=== PATIENT | female | born 1940 | race Two or more races ===

== ENCOUNTER 2021-05-01 18:09 | Inpatient (IN) | payer OTHER ==
[~2021-05-01] VITALS: Ht 152.4 cm; Wt 63.5 kg
== END 2021-05-10 15:16 | disposition home or self-care (01) | DRG 392 ==
LOC: ER 18:09 → MEDI 05-02 14:55
PROVIDERS: ADMIT Internal Medicine; ATTEND Internal Medicine
PROC: 30233N1 Transfusion of Nonautologous Red Blood Cells into Peripheral Vein, Percutaneous Approach (ICD-10-PCS; principal; 2021-05-02)
PROC: BW21YZZ Computerized Tomography (CT Scan) of Abdomen and Pelvis using Other Contrast (ICD-10-PCS; 2021-05-02)
PROC: B24BZZZ Ultrasonography of Heart with Aorta (ICD-10-PCS; 2021-05-03)
PROC: 4A12X4Z Monitoring of Cardiac Electrical Activity, External Approach (ICD-10-PCS; 2021-05-04)
DX: K57.30 Diverticulosis of large intestine without perforation or abscess without bleeding (principal); K62.5 Hemorrhage of anus and rectum; D64.9 Anemia, unspecified; R10.30 Lower abdominal pain, unspecified; I35.0 Nonrheumatic aortic (valve) stenosis; K58.9 Irritable bowel syndrome, unspecified; I10 Essential (primary) hypertension; Z20.822 Contact with and (suspected) exposure to COVID-19; E78.49 Other hyperlipidemia